=== PATIENT | female | born 1990 | race Caucasian/White ===

== ENCOUNTER 2019-01-15 16:18 | Emergency (ER) | payer OTHER ==
[2019-01-15 16:38] VITALS: BP 126/73
[2019-01-15 17:00] LABS: Influenza A Molecular POSITIVE (Negative)
--- NOTE | 2019-01-15 17:15 | ED ---
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 Onset/Duration: Sudden Onset Associated Signs & Symptoms: Myalgia - Allergy/Home Medications Allergies/Adverse Reactions: Allergies Allergy/AdvReac Type Severity Reaction Status Date / Time codeine Allergy Vomiting Verified 01/15/19 16:38 PMH/Surg Hx/FS Hx/Imm Hx Previously Healthy: Yes Infectious Disease History: No Infectious Disease History: Denies: Traveled Outside the [place] in Last 30 Days - Social History Alcohol Use: None Substance Use Type: Reports: None Smoking Status (MU): Former Smoker Review of Systems - ROS Summary Review of Systems Summary: Constitutional: F/c/bodyaches Eyes: Negative ENT: Negative Cardiovascular: Negative Respiratory: Negative Gastrointestinal: Negative Genitourinary: Negative Musculoskeletal: Negative Neurological: Negative Psychological: Normal All Other Systems Reviewed And Are Negative: Yes All Other Systems Reviewed And Are Negative: Yes Physical Exam - Summary Physical Exam Summary: Vital Signs Reviewed: Yes Skin: Positive: Warm Head/Face: Positive: Normal Head/Face Inspection Eyes: Positive: Normal ENT: Positive: Normal ENT inspection Neck: Positive: Supple Respiratory/Lung Sounds: Positive: Clear to Auscultation Cardiovascular: Positive: Normal, RRR, S1, S2 Abdomen Description: Positive: Nontender Musculoskeletal: Positive: diffuse myalgias Neurological: Positive: Normal Psychiatric: Positive: Normal, Affect/Mood Appropriate Vital Signs On Initial Exam: Initial Vitals Temp Pulse Resp BP Pulse Ox 38.6 C 107 12 126/73 100 01/15/19 16:36 01/15/19 16:36 01/15/19 16:36 01/15/19 16:36 01/15/19 16:36 Diagnostics - Vital Signs Vital Signs Temp Pulse Resp BP Pulse Ox 01/15/19 16:36 38.6 C 107 12 126/73 100 - Laboratory Lab Results: Lab Results 01/15/19 01/15/19 Range/Units 16:53 16:56 Influenza A (Rapid) Positive A (Negative) Group A Strep Rapid Negative (Negative) Lab Statement: Any lab studies that have been ordered have been reviewed, and results considered in the medical decision making process. Flu Symptom Course/Dx - Course Assessment/Plan: rapid flu positive for Flu A - Diagnoses Provider Diagnoses: Influenza A Discharge - Sign-Out/Discharge Documenting (check all that apply): Patient Departure All imaging exams completed and their final reports reviewed: Yes - Discharge Plan Condition: Stable Disposition: HOME Prescriptions: Naproxen [Naproxen 500 mg tab] 500 mg PO BID 10 Days #20 tablet Oseltamivir CAP* [Tamiflu CAP*] 75 mg PO BID 5 Days #10 cap Patient Education Materials: Influenza (ED) Forms: *Work Release Referrals: No Primary Care Phys,NOPCP [Primary Care Provider] - - Billing Disposition and Condition Condition: STABLE Disposition: Home
== END 2019-01-15 17:28 | disposition home or self-care (01) ==
LOC: UCEAST 16:18
DX: J10.1 Influenza due to other identified influenza virus with other respiratory manifestations (principal); Z87.891 Personal history of nicotine dependence; Z88.5 Allergy status to narcotic agent
CPT/HCPCS: 87651; 99212; G0463

== ENCOUNTER 2019-02-19 08:43 | Emergency (ER) | payer OTHER ==
[2019-02-19 08:53] VITALS: BP 123/71
--- NOTE | 2019-02-19 10:07 | UC ---
FLU HPI - HPI Summary HPI Summary: 28 y/o female presents to the urgent care c/o body aches, dry cough, fatigue, sore throat , nasal congestion w/ clear nasal discharge and KAY for the past 2 days. Pt states today she developed hoarseness. Pt has not taken anything to alleviate symptoms. Pain w/ swallowing is 7/10. pt deneis fever, SOB, wheezing, chest pain, abdominal pain, N/V/D. - History of Current Complaint Chief Complaint: UCGeneralIllness Stated Complaint: FLU LIKE SYMP Time Seen by Provider: 02/19/19 10:06 Hx Obtained From: Patient Hx Last Menstrual Period: depo ?: No Onset/Duration: Gradual Onset, Lasting Days - 2 days, Still Present, Worse Since - today Severity Currently: Mild Severity Initially: Moderate Pain Intensity: 7 - w/ swallowing Pain Scale Used: 0-10 Numeric Associated Signs & Symptoms: Positive: Myalgia, Sore Throat - mild assoicated w / hoarness, Nasal Congestion - clear. Negative: Fever, T Max, Headache - Risk Factors Influenza Risk Factors: Negative - Allergy/Home Medications Allergies/Adverse Reactions: Allergies Allergy/AdvReac Type Severity Reaction Status Date / Time codeine Allergy Vomiting Verified 02/19/19 08:46 PMH/Surg Hx/FS Hx/Imm Hx Previously Healthy: Yes - Pt denies PMHX - Surgical History Surgical History: None - Family History Known Family History: Positive: Cardiac Disease, Hypertension - Social History Occupation: Employed Full-time Lives: With Family Alcohol Use: None Substance Use Type: None Smoking Status (MU): Former Smoker When Did the Patient Quit Smoking/Using Tobacco: 7 years ago Review of Systems All Other Systems Reviewed And Are Negative: Yes Constitutional: Positive: Chills, Fatigue, Other - body aches Skin: Positive: Negative Eyes: Positive: Negative ENT: Positive: Sore Throat, Nasal Discharge - clear, Sinus Congestion Respiratory: Positive: Cough - dry Cardiovascular: Positive: Negative Gastrointestinal: Positive: Negative Genitourinary: Positive: Negative Motor: Positive: Negative Neurovascular: Positive: Negative Musculoskeletal: Positive: Negative Neurological: Positive: Headache Psychological: Positive: Negative Is Patient Immunocompromised?: No Physical Exam - Summary Physical Exam Summary: VITAL SIGNS: Reviewed. GENERAL: Patient is a well developed and nourished female who is sitting comfortable in the examining table. Patient is not in any acute respiratory distress. HEAD AND FACE: No signs of trauma. No ecchymosis, hematomas or skull depressions. No sinus tenderness. EYES: PERRLA, EOMI x 2, No injected conjunctiva, no nystagmus. No photophobia. EARS: Hearing grossly intact. Ear canals and tympanic membranes are within normal limits. Nose: edematous and erythematous nasal mucosa w/ clear nasal discharge. MOUTH: Positive no erythema, no tonsillar enlargement. Uvula in midline. NECK: Supple, trachea is midline, Positive anterior cervical lymphadenopathy, no JVD, no carotid bruit, no c-spine tenderness, neck with full ROM. No meningeal signs, no Kernig's or brudzinskis signs. CHEST: Symmetric, no tenderness at palpation LUNGS: Clear to auscultation bilaterally. No wheezing or crackles. CVS: Regular rate and rhythm, S1 and S2 present, no murmurs or gallops appreciated. ABDOMEN: Soft, non-tender. No signs of distention. No rebound no guarding, and no masses palpated. Bowel sounds are normal. EXTREMITIES: FROM in all major joints, no edema, no cyanosis or clubbing. NEURO: Alert and oriented x 3. No acute neurological deficits. Speech is normal and follows commands. SKIN: Dry and warm Triage Information Reviewed: Yes Vital Signs: Initial Vital Signs Temp 98.7 F 02/19/19 08:48 Pulse 100 02/19/19 08:48 Resp 20 02/19/19 08:48 BP 123/71 02/19/19 08:48 Pulse Ox 100 02/19/19 08:48 Flu Course/Dx - Course Course Of Treatment: 28 y/o female presents to the urgent care c/o body aches, dry cough, fatigue, sore throat , nasal congestion w/ clear nasal discharge and KAY for the past 2 days. Pt states today she developed hoarseness. Pt has not taken anything to alleviate symptoms. Pain w/ swallowing is 7/10. pt deneis fever, SOB, wheezing, chest pain, abdominal pain, N/V/D. Hx obtained. Pt with an upper respiratory infection of examination. Rapid strep: negative, Rapid Influenza A&B: negative. Pt advised to increase fluid intake, rest and eat well, Rx Ibuprofen, Tessalon PO to alleviate symptoms. Pt understood and agreed with D/C instructions. - Differential Dx/Diagnosis Differential Diagnosis/HQI/PQRI: Bronchitis, Influenza, Pneumonia, RSV, Upper Respiratory Infection Provider Diagnosis: Upper respiratory infection Discharge - Sign-Out/Discharge Documenting (check all that apply): Patient Departure - D/C home All imaging exams completed and their final reports reviewed: No Studies - Discharge Plan Condition: Stable Disposition: HOME Patient Education Materials: Upper Respiratory Infection (ED) Forms: *Work Release Referrals: [facility] [place] [facility] REFERRAL [Outside] - 3 Days Additional Instructions: 1-Please take ibuprofen PO q6-8hrs prn as instructed after meals to alleviate pain and swelling. Increase fluid intake, eat well, rest and avoid strenuous exercise 2- Please take Delsym or Robitussin PO to alleviate cough. 3-If symptoms do not improve please return to the urgent care or f/u with your PCP in 2-3 days for further evaluation and treatment. 4-If symptoms worsen w/ fever, dizziness,SOB, headache, chest pain please go immediately to the ER for further management - Billing Disposition and Condition Condition: STABLE Disposition: Home
[2019-02-19 10:15] LABS: Influenza A Molecular NEGATIVE (Negative); Influenza B Molecular NEGATIVE (Negative)
== END 2019-02-19 10:44 | disposition home or self-care (01) ==
LOC: UCEAST 08:43
DX: J06.9 Acute upper respiratory infection, unspecified (principal); Z88.5 Allergy status to narcotic agent; Z87.891 Personal history of nicotine dependence
CPT/HCPCS: 99211; G0463

== ENCOUNTER 2019-10-13 08:46 | Emergency (ER) | payer OTHER ==
[2019-10-13 08:56] VITALS: BP 129/61
--- NOTE | 2019-10-13 09:23 | UC ---
Cardiac HPI - HPI Summary HPI Summary: WOKE UP YESTERDAY WITH MIDSTERNAL CHEST PAIN. FEELS "LIKE SOMEONE IS SITTING ON MY CHEST". PAIN IS NONPLEURITIC. UNSURE IF IT GETS WORSE WITH EXERTION AND SHE STATES SHE DIDN'T MOVE MUCH YESTERDAY. DENIES NAUSEA, SHORTNESS OF BREATH, SWEATS. IS CONCERNED ABOUT CARDIAC CONDITION. FORMER SMOKER. QUIT 2 YEARS AGO. HAS NEXPLANON IMPLANT LEFT ARM. - History of Current Complaint Chief Complaint: UCChestPain Stated Complaint: CHESTPAIN Time Seen by Provider: 10/13/19 08:51 Hx Obtained From: Patient Hx Last Menstrual Period: bcp Onset/Duration: Sudden Onset, Lasting Days - 1 DAY, Still Present Timing: Constant Initial Severity: Moderate Current Severity: Moderate Pain Intensity: 5 Chest Pain Location: Mid Sternal Character: Heaviness Aggravating Factor(s): Nothing Alleviating Factor(s): Nothing Associated Signs & Symptoms: Positive: Chest Pain, Recent Stress. Negative: Dizziness, SOB, Fever, Diaphoresis, Nausea/Vomiting - Allergy/Home Medications Allergies/Adverse Reactions: Allergies Allergy/AdvReac Type Severity Reaction Status Date / Time codeine Allergy Vomiting Verified 10/13/19 08:56 Home Medications: Home Medications NK [No Home Medications Reported] 10/13/19 [History Confirmed 10/13/19] PMH/Surg Hx/FS Hx/Imm Hx Previously Healthy: Yes - Surgical History Surgical History: None - Family History Known Family History: Positive: Cardiac Disease, Hypertension - Social History Alcohol Use: None Substance Use Type: None Smoking Status (MU): Former Smoker When Did the Patient Quit Smoking/Using Tobacco: 7 years ago Review of Systems All Other Systems Reviewed And Are Negative: Yes Constitutional: Positive: Negative ENT: Positive: Negative Respiratory: Positive: Negative Cardiovascular: Positive: Chest Pain Gastrointestinal: Positive: Negative Physical Exam Triage Information Reviewed: Yes Appearance: Well-Appearing, No Pain Distress, Well-Nourished Vital Signs: Initial Vital Signs Temp 99.3 F 10/13/19 08:54 Pulse 99 10/13/19 08:54 Resp 20 10/13/19 08:54 BP 129/61 10/13/19 08:54 Pulse Ox 100 10/13/19 08:54 Vital Signs Reviewed: Yes Eyes: Positive: Conjunctiva Clear ENT: Positive: Hearing grossly normal Neck: Positive: Supple Respiratory Exam: Normal Cardiovascular Exam: Normal Abdomen Description: Positive: Soft Musculoskeletal: Positive: No Edema Neurological: Positive: Alert Psychological: Positive: Age Appropriate Behavior Skin: Negative: Rashes Diagnostics - EKG Cardiac Rate: NL - 81BPM Cardiac Rhythm: Sinus: Normal Ectopy: None ST Segment: Normal - Assessment/Plan Course Of Treatment: PATIENT ARRIVES WITH SUDDEN ONSET OF MIDSTERNAL CHEST PAIN YESTERDAY. FEELS "LIKE SOMEONE IS SITTING ON MY CHEST". CAME IN DUE TO CONCERN OVER POSSIBLE UNDERLYING CARDIAC ISSUE. STATES HER FATHER HAD CARDIAC ISSUES IN HIS LATE 30S. EKG UNREMARKABLE. PATIENT QUIT SMOKING 2 YEARS AGO AND HAS NEXPLANON IMPLANT. PT OFFERED TRANSPORT TO THE ER BY AMBULANCE BUT DECLINES. ADVISED THAT BY NOT TRAVELING IN A MONITORED SETTING SHE COULD BE RISKING WORSENING OF HER CONDITION THAT COULD POSE A THREAT TO HER LIFE, HEALTH AND MEDICAL SAFETY. SHE VERBALIZES UNDERSTANDING AND CONTINUES TO DECLINE AMBULANCE TRANSFER. - Clinical Impression Provider Diagnosis: Chest pain Discharge ED - Sign-Out/Discharge Documenting (check all that apply): Patient Departure All imaging exams completed and their final reports reviewed: No Studies - Discharge Plan Condition: Stable Disposition: TRANS HIGHER LVL OF CARE FAC Patient Education Materials: Chest Pain (ED) Referrals: No Primary Care Phys,NOPCP [Primary Care Provider] - Additional Instructions: GO DIRECTLY TO THE [facility] FROM HERE FOR FURTHER EVALUATION. YOU HAVE DECLINED TRANSFER TO THE ER BY AMBULANCE. BE ADVISED THAT BY NOT TRAVELING IN A MONITORED SETTING YOU COULD BE RISKING WORSENING OF YOUR CONDITION THAT COULD POSE A THREAT TO YOUR LIFE, HEALTH AND MEDICAL SAFETY. - Billing Disposition and Condition Condition: STABLE Disposition: Trans Higher Lvl of Care Fac
== END 2019-10-13 09:20 | disposition short-term general hospital (02) ==
LOC: UCEAST 08:46
DX: R07.89 Other chest pain (principal); Z88.5 Allergy status to narcotic agent; Z87.891 Personal history of nicotine dependence
CPT/HCPCS: 93005; 99212; G0463

== ENCOUNTER 2024-06-09 14:29 | Inpatient (IN) ==
[2024-06-09 17:24] LABS: Urine Benzodiazepine Screen None Detected (None Detect); Urine Cannabinoids Screen None Detected (None Detect); Urine Opiates Screen None Detected (None Detect)
[2024-06-09] MEDS ORDERED: Lidocaine 1% VIAL 10 MG/ML 30 ML VIAL INJ PRN (18:41)
[2024-06-09 19:12] LABS: ABS Basophils 0.1 10^3/uL (0.0-0.1); ABS Eosinophils 0.3 10^3/uL (0.0-0.5); ABS Lymphocytes 1.9 10^3/uL (1.0-4.8); ABS Monocytes 1.1 10^3/uL (0.0-0.9); ABS Neutrophils 14.2 10^3/uL (1.5-7.6); ABS Nucleated RBC 0.02 10^3/ul; Eosinophil % 1.8 %; Lymphocyte % 10.8 %; Mean Corpuscular Hemoglobin 35.8 pg (27-33); Mean Corpuscular Hgb Conc 33.3 g/dL (31-36); Mean Corpuscular Volume 107.6 fL (80-97); Mean Platelet Volume 9.8 fL (7.5-11.2); Nucleated Red Blood Cells % 0.1 %/100WBC (0.0-0.8); Platelet Count 247 10^3/uL (150-450); Red Blood Count 3.62 10^6/uL (3.63-4.92); Red Cell Distribution Width 12.5 % (12-17); White Blood Count 17.6 10^3/uL (3.8-11.8)
[2024-06-09] MEDS: Lactated Ringers 1000 ml BAG 1,000 ML IV ONE (20:00)
[2024-06-09] MEDS ORDERED: Sodium Citrate/Citric Acid LIQ 15 ML UDC PO PRN (21:04)
[2024-06-09] MEDS ORDERED: Phenylephrine 40 mcg/mL 10mL (400mcg) SYRINGE IV PUSH PRN ×2 (21:04)
[2024-06-09] MEDS: OBEPIDURAL (200 ML) 200 ML EPIDURAL SCH (21:09)
[2024-06-09] MEDS: Lactated Ringers 1000 ml BAG 1,000 ML IV SCH (21:12)
[2024-06-09 22:11] LABS: Urine Appearance Turbid; Urine Bilirubin Negative (Negative); Urine Blood 1+ (Negative); Urine Color Light-Yellow; Urine Glucose Negative (Negative); Urine Ketones Negative (Negative); Urine Nitrite Negative (Negative); Urine Protein Negative (Negative); Urine Urobilinogen Negative (Negative); Urine pH 7.5 (5.0-8.0)
[2024-06-09 22:22] LABS: Urine Bacteria Absent /HPF (Absent); Urine Red Blood Cell 3+(>10/hpf) /HPF (0-Trace); Urine Squamous Epithelial Cell Present /HPF (Absent); Urine White Blood Cell Trace(0-5/hpf) /HPF (0-Trace)
[2024-06-09 23:01] LABS: Urine Benzodiazepine Screen None Detected (None Detect); Urine Cannabinoids Screen None Detected (None Detect); Urine Opiates Screen None Detected (None Detect)
[2024-06-10] MEDS ORDERED: RHO D Immune Globulin (HUMAN) 300 MCG = 1,500 I.U. INJ IM PRN (00:55)
[2024-06-10] MEDS ORDERED: Glycerin ADULT 2.4 gm SUPP PR PRN (00:55)
[2024-06-10] MEDS ORDERED: Lactated Ringers 1000 ml BAG 1,000 ML IV SCH (01:00)
[2024-06-10] MEDS: Oxytocin in LR 20,000 MILLI.UNIT/1,000 ML BAG IV SCH (01:00)
[2024-06-10] MEDS: Witch Hazel PAD JAR TOPICAL PRN (02:18)
[2024-06-10] MEDS: Dibucaine 1% OINT 28.35 GM TUBE PR PRN (02:18)
[2024-06-10] MEDS: Lidocaine 1.5% EPI 1:200,000 30 ML SDV ONE ×2 (05:15→05:16)
[2024-06-10] MEDS: OBEPIDURAL (200 ML) 200 ML EPIDURAL ONE (05:15)
[2024-06-10] MEDS: Buffered Lidocaine 1% SYRIN 1 ml INTRADERM ONE (05:15)
[2024-06-10] MEDS: Lactated Ringers 1000 ml BAG 1,000 ML IV SCH (05:16)
[2024-06-10] MEDS: Lactated Ringers 1000 ml BAG 1,000 ML IV ONE (05:16)
[2024-06-10] MEDS: Oxytocin in LR 20,000 MILLI.UNIT/1,000 ML BAG IV ONE (05:17)
[2024-06-10] MEDS ORDERED: Measles, Mumps,Rubella VACC 0.5 ML/VIAL SUBCUT ONE (09:00)
[2024-06-11 07:41] LABS: ABS Basophils 0.1 10^3/uL (0.0-0.1); ABS Eosinophils 0.4 10^3/uL (0.0-0.5); ABS Lymphocytes 3.1 10^3/uL (1.0-4.8); ABS Monocytes 1.3 10^3/uL (0.0-0.9); ABS Neutrophils 10.1 10^3/uL (1.5-7.6); ABS Nucleated RBC 0.01 10^3/ul; Eosinophil % 2.6 %; Hematocrit 34.8 % (35-45); Hemoglobin 11.6 g/dL (11.5-14.3); Lymphocyte % 20.9 %; Mean Corpuscular Hemoglobin 36.2 pg (27-33); Mean Corpuscular Hgb Conc 33.3 g/dL (31-36); Mean Corpuscular Volume 108.6 fL (80-97); Mean Platelet Volume 9.5 fL (7.5-11.2); Nucleated Red Blood Cells % 0.1 %/100WBC (0.0-0.8); Platelet Count 226 10^3/uL (150-450); Red Cell Distribution Width 12.5 % (12-17)
[2024-06-11] MEDS: Measles, Mumps,Rubella VACC 0.5 ML/VIAL SUBCUT ONE (16:27)
[2024-06-12 08:08] VITALS: BP 119/69
== END 2024-06-12 12:50 | disposition home or self-care (01) | DRG 807 ==
LOC: MCHOBOUT 14:29 → MCHOB 16:22
PROVIDERS: ATTEND Midwife